=== PATIENT | male | born 1955 | race Native Hawaiian/Other Pacific Islander ===

== ENCOUNTER 2016-11-29 18:09 | Emergency (ER) | payer OTHER ==
[~2016-11-29] VITALS: Ht 175.3 cm; Wt 70.3 kg
[2016-11-29 18:59] LABS: PLATELET COUNT 317 K/uL (142-355)
[2016-11-29 19:11] LABS: POTASSIUM 3.8 mmol/L (3.6-5.2); SODIUM 136 mmol/L (136-145)
[2016-11-29 20:11] VITALS: BP 160/85; TEMP 98.5
[2017-03-24] MEDS ORDERED: ALBUTEROL0.083 % IN (09:38)
[2017-03-24] MEDS ORDERED: ALBU90AE13 INH (09:38)
== END 2016-11-29 20:16 | disposition home or self-care (01) ==
LOC: ED 18:09
DX: J44.1 Chronic obstructive pulmonary disease with (acute) exacerbation (principal); J43.9 Emphysema, unspecified
CPT/HCPCS: 36415; 80053; 85027; 99283; J2920; J2930

== ENCOUNTER 2017-03-23 17:06 | Outpatient (CLI) | payer OTHER ==
[2017-03-24] MEDS ORDERED: ALBU90AE13 INH ×2 (09:38)
[2017-03-24] MEDS ORDERED: ALBUTEROL0.083 % IN ×2 (09:38)
== END 2017-03-23 17:19 | disposition short-term general hospital (02) ==
LOC: AMB 17:06
DX: R06.09 Other forms of dyspnea (principal)
CPT/HCPCS: A0425; A0427

== ENCOUNTER 2017-03-23 17:26 | Inpatient (IN) | payer OTHER ==
[~2017-03-23] VITALS: Ht 175.3 cm; Wt 69.1 kg
[2017-03-23 17:19] VITALS: BP 167/87; TEMP 98
[2017-03-23 17:41] LABS: PLATELET COUNT 298 K/uL (142-355)
[2017-03-23 17:54] LABS: SODIUM 138 mmol/L (136-145)
[2017-03-24 01:33] VITALS: BP 157/88; TEMP 97.6; Ht 175.3 cm; Wt 69.1 kg
[2017-03-24 04:00] VITALS: BP 131/86; TEMP 97.9
[2017-03-24 08:00] VITALS: BP 133/77; TEMP 98
[2017-03-24] MEDS ORDERED: ALBU90AE13 INH ×2 (09:38)
[2017-03-24] MEDS ORDERED: ALBUTEROL0.083 % IN ×2 (09:38)
[2017-03-24 12:00] VITALS: BP 139/84; TEMP 97.9
[2017-03-24 16:00] VITALS: BP 136/86; TEMP 98.2
[2017-03-24 20:00] VITALS: BP 147/95; TEMP 97.9
[2017-03-25] VITALS: BP 139/87; TEMP 97.6
[2017-03-25 04:00] VITALS: BP 123/89; TEMP 98.1
[2017-03-25 07:19] LABS: POTASSIUM 4.3 mmol/L (3.6-5.2); SODIUM 138 mmol/L (136-145)
[2017-03-25 08:00] VITALS: BP 146/97; TEMP 97.8
[2017-03-25 10:35] LABS: PLATELET COUNT 280 K/uL (142-355)
[2017-03-25 12:22] VITALS: BP 138/91; TEMP 97.6
[2017-03-25 16:00] VITALS: BP 132/79; TEMP 97.8
[2017-03-25 20:00] VITALS: BP 145/95; TEMP 98.6
[2017-03-26] VITALS: BP 140/88; TEMP 98.3
[2017-03-26 04:00] VITALS: BP 118/78; TEMP 97.6
[2017-03-26 06:21] LABS: POTASSIUM 3.8 mmol/L (3.6-5.2); SODIUM 139 mmol/L (136-145)
[2017-03-26 06:26] LABS: PLATELET COUNT 272 K/uL (142-355)
[2017-03-26 08:00] VITALS: BP 146/79; TEMP 97.6
[2017-03-26 12:00] VITALS: BP 133/87; TEMP 97.4
[2017-03-26 16:00] VITALS: BP 149/91; TEMP 97.6
[2017-03-26 20:30] VITALS: BP 148/94; TEMP 98.1
[2017-03-27] VITALS: BP 148/94; TEMP 98.1
[2017-03-27 04:00] VITALS: BP 128/73; TEMP 97
[2017-03-27 06:24] LABS: PLATELET COUNT 275 K/uL (142-355)
[2017-03-27 06:49] LABS: POTASSIUM 3.7 mmol/L (3.6-5.2); SODIUM 140 mmol/L (136-145)
[2017-03-27 07:00] VITALS: BP 110/68; TEMP 97.3
[2017-03-27 12:00] VITALS: BP 126/75; TEMP 98.8
[2017-03-27 16:00] VITALS: BP 147/83; TEMP 97.7
[2017-03-27 20:00] VITALS: BP 148/96; TEMP 97.6
[2017-03-28] VITALS: BP 131/86; TEMP 97.4
[2017-03-28 04:00] VITALS: BP 137/87; TEMP 97.5
[2017-03-28 05:35] LABS: PLATELET COUNT 262 K/uL (142-355)
[2017-03-28 05:54] LABS: POTASSIUM 4.1 mmol/L (3.6-5.2); SODIUM 139 mmol/L (136-145)
[2017-03-28 08:00] VITALS: BP 128/88; TEMP 97.4
[2017-03-28 11:58] VITALS: BP 158/89; TEMP 97.9
[2017-03-28 16:00] VITALS: BP 140/93; TEMP 97.5
[2017-03-28 20:00] VITALS: BP 170/92; TEMP 97.9
[2017-03-29] VITALS: BP 127/79; TEMP 98
[2017-03-29 04:00] VITALS: BP 128/81; TEMP 97.5
[2017-03-29 04:24] LABS: PLATELET COUNT 278 K/uL (142-355)
[2017-03-29 04:47] LABS: POTASSIUM 3.3 mmol/L (3.6-5.2); SODIUM 137 mmol/L (136-145)
[2017-03-29 08:00] VITALS: BP 130/86; TEMP 97.6
[2017-03-29 12:00] VITALS: BP 131/88; TEMP 97.8
== END 2017-03-29 14:50 | disposition home or self-care (01) | DRG 192 ==
LOC: ED 17:26 → MED/SURG 22:30
PROVIDERS: Emergency Medicine; Internal Medicine; ADMIT Emergency Medicine
DX: J44.1 Chronic obstructive pulmonary disease with (acute) exacerbation (principal); Z72.0 Tobacco use
CPT/HCPCS: 36415; 36591; 80048; 80053; 82550; 83735; 83880; 84484; 85027; 93005; 94640; 94664; 94760; 96367; 96374; 96375; 99284; J1650; J1956; J2930; J3475; Q9963

== ENCOUNTER 2017-11-12 17:33 | Emergency (ER) | payer OTHER ==
[~2017-11-12] VITALS: Ht 175.3 cm; Wt 72.1 kg
[~2017-11-12 17:33] MED LIST: ALBU90AE13 INH; ALBUTEROL0.083 % IN
[2017-11-12 17:40] VITALS: BP 167/108; TEMP 98.6
[2017-11-12 19:07] LABS: POTASSIUM 3.9 mmol/L (3.6-5.2)
[2017-11-12 19:09] LABS: PLATELET COUNT 312 K/uL (142-355)
== END 2017-11-12 19:36 | disposition home or self-care (01) ==
LOC: ED 17:33
DX: J44.1 Chronic obstructive pulmonary disease with (acute) exacerbation (principal); J45.909 Unspecified asthma, uncomplicated; R06.00 Dyspnea, unspecified
CPT/HCPCS: 80053; 85027; 94664; 96365; 99284; J2930

== ENCOUNTER 2017-11-15 16:59 | Emergency (ER) | payer OTHER ==
[~2017-11-15] VITALS: Ht 175.3 cm; Wt 71.7 kg
[2017-11-15 17:33] LABS: PLATELET COUNT 314 K/uL (142-355)
[2017-11-15 17:36] LABS: POTASSIUM 3.4 mmol/L (3.6-5.2); SODIUM 135 mmol/L (136-145)
[2017-11-15 17:51] LABS: PARTIAL THROMBOPLASTIN TIME 24.2 SECONDS (24.5-33.6)
[2017-11-15 19:25] VITALS: BP 138/95; TEMP 98.2
== END 2017-11-15 19:31 | disposition home or self-care (01) ==
LOC: ED 16:59
DX: R06.00 Dyspnea, unspecified (principal); F11.10 Opioid abuse, uncomplicated
CPT/HCPCS: 36415; 80053; 80307; 81000; 82550; 84484; 85027; 85610; 85730; 93005; 94664; 99284

== ENCOUNTER 2017-11-17 07:37 | Outpatient (CLI) | payer OTHER | END 2017-11-17 07:47 | disposition short-term general hospital (02) | LOC: AMB 07:37 | DX: R06.09 Other forms of dyspnea (principal) | CPT/HCPCS: A0425; A0427 ==

== ENCOUNTER 2017-11-17 07:47 | Inpatient (IN) | payer OTHER ==
[2017-11-17] VITALS (7 sets, daily range): BP systolic 132–158; BP diastolic 58–96; TEMP 97.7–98.1; Ht 175.3 cm; Wt 71.3 kg
[~2017-11-17] VITALS: Ht 175.3 cm; Wt 71.3 kg
[2017-11-17 08:25] LABS: POTASSIUM 4.2 mmol/L (3.6-5.2); SODIUM 137 mmol/L (136-145)
[2017-11-17 08:32] LABS: PLATELET COUNT 321 K/uL (142-355)
[2017-11-18] VITALS: BP 118/76; TEMP 97.8
[2017-11-18 04:00] VITALS: BP 112/74; TEMP 97.3
[2017-11-18 06:00] LABS: POTASSIUM 4.1 mmol/L (3.6-5.2)
[2017-11-18 06:06] LABS: PLATELET COUNT 290 K/uL (142-355)
[2017-11-18 08:15] VITALS: BP 114/71; TEMP 97.4
[2017-11-18 12:00] VITALS: BP 139/79; TEMP 98.1
[2017-11-18 16:00] VITALS: BP 137/80; TEMP 98.1
[2017-11-18 20:00] VITALS: BP 129/85; TEMP 98.2
[2017-11-19] VITALS: BP 126/76; BP 147/69; TEMP 98.1
[2017-11-19 04:00] VITALS: BP 123/80; TEMP 98.1
[2017-11-19 05:13] LABS: PLATELET COUNT 309 K/uL (142-355)
[2017-11-19 05:36] LABS: POTASSIUM 4.2 mmol/L (3.6-5.2)
[2017-11-19 08:13] VITALS: BP 142/84; TEMP 97.8
[2017-11-19 12:00] VITALS: BP 134/79; TEMP 98
[2017-11-19 16:00] VITALS: BP 148/78; TEMP 98.1
[2017-11-19 20:00] VITALS: BP 129/84; TEMP 98.4
[2017-11-20] VITALS: BP 100/72; TEMP 98.4
[2017-11-20 04:00] VITALS: BP 102/81; TEMP 98.1
[2017-11-20 05:53] LABS: POTASSIUM 3.1 mmol/L (3.6-5.2)
[2017-11-20 06:01] LABS: PLATELET COUNT 313 K/uL (142-355)
[2017-11-20 08:00] VITALS: BP 102/67; TEMP 97.9
[2017-11-20 12:00] VITALS: BP 103/67; TEMP 98
[2017-11-20 16:00] VITALS: BP 103/67; BP 103/73; TEMP 98; TEMP 98.2
[2017-11-20 20:00] VITALS: BP 118/78; TEMP 98.3
[2017-11-21] VITALS: BP 122/90; TEMP 97.4
[2017-11-21 04:00] VITALS: BP 106/80; TEMP 98.2
[2017-11-21 06:36] LABS: PLATELET COUNT 303 K/uL (142-355)
[2017-11-21 07:43] LABS: POTASSIUM 4.5 mmol/L (3.6-5.2)
[2017-11-21 08:00] VITALS: BP 100/70; TEMP 98
[2017-11-21 12:00] VITALS: BP 116/81; TEMP 98.2
[2017-11-21 16:00] VITALS: BP 117/58; TEMP 98.1
[2017-11-21 20:25] VITALS: BP 113/73; TEMP 98.4
[2017-11-22] VITALS: BP 105/65; TEMP 98.2
[2017-11-22 04:00] VITALS: BP 108/58; TEMP 98.4
[2017-11-22 06:01] LABS: PLATELET COUNT 307 K/uL (142-355)
[2017-11-22 06:02] LABS: POTASSIUM 4.1 mmol/L (3.6-5.2)
[2017-11-22 08:00] VITALS: BP 117/73; TEMP 97.9
[2017-11-22 11:51] VITALS: BP 106/73; TEMP 97.9
[2017-11-22 16:00] VITALS: BP 102/73; TEMP 98.4
[2017-11-22 20:00] VITALS: BP 113/74; TEMP 98.1
[2017-11-23] VITALS (7 sets, daily range): BP systolic 101–126; BP diastolic 54–89; TEMP 97.7–98.1
[2017-11-23 06:23] LABS: PLATELET COUNT 296 K/uL (142-355)
[2017-11-23 06:43] LABS: POTASSIUM 3.8 mmol/L (3.6-5.2)
[2017-11-24 04:00] VITALS: BP 113/87; TEMP 97.7
[2017-11-24 05:19] LABS: PLATELET COUNT 257 K/uL (142-355)
[2017-11-24 07:59] VITALS: BP 115/74; TEMP 98.1
[2017-11-24] MEDS ORDERED: PROAIR HFA IN (09:35)
[2017-11-24] MEDS ORDERED: MEDROL4 MG OR (09:35)
[2017-11-24] MEDS ORDERED: PULMICORT180 MCG IN (09:35)
[2017-11-24 11:48] VITALS: BP 126/88; TEMP 97.9
[2017-11-24 16:00] VITALS: BP 115/89; TEMP 98.1
== END 2017-11-24 17:50 | disposition home or self-care (01) | DRG 192 ==
LOC: ED 07:47 → MED/SURG 11:50
PROVIDERS: Emergency Medicine; ADMIT Family Medicine
DX: J44.1 Chronic obstructive pulmonary disease with (acute) exacerbation (principal); J43.9 Emphysema, unspecified; E87.6 Hypokalemia; R06.09 Other forms of dyspnea; F14.10 Cocaine abuse, uncomplicated; D72.828 Other elevated white blood cell count
CPT/HCPCS: 36415; 36600; 80053; 81000; 82550; 82805; 82948; 83880; 84484; 85027; 85379; 87070; 87081; 87205; 87804; 87880; 93005; 93306; 94640; 94664; 94668; 94760; 96365; 96367; 96372; 96374; 96375; 99284; J1650; J1815; J1956; J2920; J2930; J3475; Q9963

== ENCOUNTER 2018-02-26 04:01 | Emergency (ER) | payer OTHER ==
[~2018-02-26] VITALS: Ht 175.3 cm; Wt 67.6 kg
[~2018-02-26 04:01] MED LIST changes: +MEDROL4 MG OR; +PROAIR HFA IN; +PULMICORT180 MCG IN
[2018-02-26 04:21] LABS: PLATELET COUNT 283 K/uL (142-355)
[2018-02-26 04:32] LABS: POTASSIUM 4.1 mmol/L (3.6-5.2)
[2018-02-26 05:56] VITALS: BP 147/88; TEMP 98.4
== END 2018-02-26 05:59 | disposition home or self-care (01) ==
LOC: ED 04:01
PROC: 0T9B70Z Drainage of Bladder with Drainage Device, Via Natural or Artificial Opening (ICD-10-PCS; principal; 2018-02-26)
DX: R33.9 Retention of urine, unspecified (principal)
CPT/HCPCS: 51702; 80053; 81000; 85027; 93005; 94664; 99283

== ENCOUNTER 2018-08-02 08:46 | Outpatient (CLI) | payer OTHER ==
[2018-08-02 09:05] LABS: PLATELET COUNT 258 K/uL (142-355)
[2018-08-02 10:08] LABS: POTASSIUM 3.9 mmol/L (3.6-5.2)
== END 2018-08-02 18:50 | disposition home or self-care (01) ==
LOC: LABW 08:46
PROVIDERS: Physician Assistant
DX: I10 Essential (primary) hypertension (principal); N40.0 Benign prostatic hyperplasia without lower urinary tract symptoms; Z79.899 Other long term (current) drug therapy
CPT/HCPCS: 36415; 80053; 80061; 83036; 84153; 84439; 84443; 85027

== ENCOUNTER 2018-08-15 08:39 | Day surgery (SDC) | payer OTHER ==
[2018-08-15 09:21] LABS: PLATELET COUNT 299 K/uL (142-355)
[2018-08-15 10:04] LABS: POTASSIUM 3.8 mmol/L (3.6-5.2)
== END 2018-08-15 15:40 | disposition home or self-care (01) ==
LOC: OR 08:39
PROVIDERS: Student in an Organized Health Care Education/Training Program
PROC: 0JBL0ZZ Excision of Right Upper Leg Subcutaneous Tissue and Fascia, Open Approach (ICD-10-PCS; principal; 2018-08-15)
DX: D17.23 Benign lipomatous neoplasm of skin and subcutaneous tissue of right leg (principal); L90.5 Scar conditions and fibrosis of skin; M79.89 Other specified soft tissue disorders
CPT/HCPCS: 80053; 85027; J0132; J0330; J0690; J1100; J1170; J2001; J2250; J2405; J2704; J3010; J3490

== ENCOUNTER 2019-10-24 00:14 | Outpatient (CLI) | payer OTHER | END 2019-10-24 00:25 | disposition short-term general hospital (02) | LOC: AMB 00:14 | DX: N48.89 Other specified disorders of penis (principal) | CPT/HCPCS: A0425; A0427 ==

== ENCOUNTER 2019-10-24 00:28 | Emergency (ER) | payer OTHER ==
[~2019-10-24] VITALS: Ht 175.3 cm; Wt 70.8 kg
[2019-10-24 01:18] LABS: PLATELET COUNT 286 K/uL (142-355)
[2019-10-24 01:27] LABS: PARTIAL THROMBOPLASTIN TIME 22.7 SECONDS (24.5-33.6)
[2019-10-24 01:29] LABS: POTASSIUM 3.6 mmol/L (3.6-5.2)
[2019-10-24 03:35] VITALS: BP 131/95; TEMP 97.9
== END 2019-10-24 03:35 | disposition short-term general hospital (02) ==
LOC: ED 00:28
PROVIDERS: Emergency Medicine
PROC: 0T9B70Z Drainage of Bladder with Drainage Device, Via Natural or Artificial Opening (ICD-10-PCS; principal; 2019-10-24)
DX: R31.0 Gross hematuria (principal)
CPT/HCPCS: 51702; 80053; 81000; 85027; 85610; 85730; 86850; 86900; 86901; 96360; 96361; 99284

== ENCOUNTER 2019-10-24 03:44 | Outpatient (CLI) | payer OTHER | END 2019-10-24 05:39 | disposition short-term general hospital (02) | LOC: AMB 03:44 | DX: R31.0 Gross hematuria (principal) | CPT/HCPCS: A0425; A0429 ==

== ENCOUNTER 2019-11-14 03:21 | Outpatient (CLI) | payer OTHER | END 2019-11-14 03:33 | disposition short-term general hospital (02) | LOC: AMB 03:21 | DX: R33.8 Other retention of urine (principal); R10.30 Lower abdominal pain, unspecified | CPT/HCPCS: A0425; A0429 ==

== ENCOUNTER 2019-11-14 03:36 | Emergency (ER) | payer OTHER ==
[~2019-11-14] VITALS: Ht 175.3 cm; Wt 71.2 kg
[2019-11-14 04:39] VITALS: BP 150/83; TEMP 97.8
== END 2019-11-14 04:40 | disposition home or self-care (01) ==
LOC: ED 03:36
PROC: 0T2BX0Z Change Drainage Device in Bladder, External Approach (ICD-10-PCS; principal; 2019-11-14)
DX: R33.8 Other retention of urine (principal)
CPT/HCPCS: 51702; 81000; 99282; 99283

== ENCOUNTER 2020-07-10 17:50 | Outpatient (CLI) | payer OTHER ==
[2020-07-10 20:32] LABS: POTASSIUM 4.3 mmol/L (3.6-5.2)
== END 2020-07-10 23:43 | disposition home or self-care (01) ==
LOC: LAB 17:50
PROVIDERS: Internal Medicine
DX: I10 Essential (primary) hypertension (principal); N40.1 Benign prostatic hyperplasia with lower urinary tract symptoms
CPT/HCPCS: 80053; 80061; 81000; 84153; 84439; 84443; 85027; 87077; 87086; 87088; 87186

== ENCOUNTER 2020-10-09 09:20 | Outpatient (CLI) | payer OTHER ==
[2020-10-09 09:48] LABS: POTASSIUM 4.3 mmol/L (3.6-5.2)
[2020-10-09 09:58] LABS: PLATELET COUNT 250 K/uL (142-355)
== END 2020-10-09 19:22 | disposition home or self-care (01) ==
LOC: LABW 09:20
PROVIDERS: ATTEND Internal Medicine
DX: B86 Scabies (principal)
CPT/HCPCS: 36415; 80053; 85027

== ENCOUNTER 2021-01-07 16:10 | Emergency (ER) | payer OTHER ==
[~2021-01-07] VITALS: Ht 175.3 cm; Wt 71.2 kg
[2021-01-07 16:15] VITALS: TEMP 98
[2021-01-07] MEDS ORDERED: MOBIC15 MG PO (16:31)
[2021-01-07] MEDS ORDERED: PRAVASTATIN10 MG PO (16:31)
[2021-01-07] MEDS ORDERED: LOSA50TA PO (16:32)
[2021-01-07] MEDS ORDERED: TAMS0.4C PO (16:33)
[2021-01-07 16:36] LABS: PLATELET COUNT 268 K/uL (142-355)
[2021-01-07 16:41] LABS: POTASSIUM 3.9 mmol/L (3.6-5.2)
[2021-01-07 18:47] VITALS: BP 156/90
== END 2021-01-07 18:49 | disposition home or self-care (01) ==
LOC: ED 16:10
PROVIDERS: Emergency Medicine Emergency Medical Services
DX: J44.1 Chronic obstructive pulmonary disease with (acute) exacerbation (principal); Z20.828 Contact with and (suspected) exposure to other viral communicable diseases; F17.210 Nicotine dependence, cigarettes, uncomplicated
CPT/HCPCS: 80053; 85027; 87635; 94664; 96374; 99284; J1100; U0003

== ENCOUNTER 2021-04-08 08:54 | Outpatient (CLI) | payer OTHER ==
[2021-04-08 09:17] LABS: PLATELET COUNT 265 K/uL (142-355)
[2021-04-08 09:48] LABS: POTASSIUM 3.8 mmol/L (3.6-5.2)
== END 2021-04-08 22:18 | disposition home or self-care (01) ==
LOC: LABW 08:54
PROVIDERS: ATTEND Internal Medicine
DX: I10 Essential (primary) hypertension (principal)
CPT/HCPCS: 36415; 80053; 80061; 81000; 84439; 84443; 85027

== ENCOUNTER 2021-06-24 04:00 | Emergency (ER) | payer OTHER ==
[~2021-06-24] VITALS: Ht 175.3 cm; Wt 74.8 kg
[~2021-06-24 04:00] MED LIST changes: +LOSA50TA PO; +MOBIC15 MG PO; +PRAVASTATIN10 MG PO; +TAMS0.4C PO
[2021-06-24 05:02] LABS: PLATELET COUNT 253 K/uL (142-355)
[2021-06-24 05:09] LABS: POTASSIUM 3.2 mmol/L (3.6-5.2)
[2021-06-24 06:00] VITALS: BP 158/89; TEMP 97.9
== END 2021-06-24 06:00 | disposition home or self-care (01) ==
LOC: ED 04:00
PROVIDERS: Emergency Medicine Emergency Medical Services
DX: N47.2 Paraphimosis (principal)
CPT/HCPCS: 36415; 80053; 85027; 96360; 96375; 99284; J2270

== ENCOUNTER 2021-11-18 18:06 | Emergency (ER) | payer OTHER ==
[~2021-11-18] VITALS: Ht 175.3 cm; Wt 74.8 kg
[2021-11-18 18:44] LABS: PLATELET COUNT 199 K/uL (142-355)
[2021-11-18 18:50] LABS: POTASSIUM 3.5 mmol/L (3.6-5.2)
[2021-11-18 20:00] VITALS: BP 156/95; TEMP 98.6
== END 2021-11-18 20:00 | disposition home or self-care (01) ==
LOC: ED 18:06
PROVIDERS: Hospitalist
DX: J06.9 Acute upper respiratory infection, unspecified (principal); U07.1 COVID-19; J45.901 Unspecified asthma with (acute) exacerbation; F17.210 Nicotine dependence, cigarettes, uncomplicated
CPT/HCPCS: 36415; 80053; 85027; 87502; 87651; 96372; 99283; J0696; J1100

== ENCOUNTER 2022-03-09 08:53 | Outpatient (CLI) | payer OTHER ==
[2022-03-09 09:12] LABS: PLATELET COUNT 271 K/uL (142-355)
[2022-03-09 09:44] LABS: POTASSIUM 3.6 mmol/L (3.6-5.2)
== END 2022-03-09 19:00 | disposition home or self-care (01) ==
LOC: LABW 08:53
PROVIDERS: ATTEND Internal Medicine
DX: I10 Essential (primary) hypertension (principal); E78.00 Pure hypercholesterolemia, unspecified; R97.20 Elevated prostate specific antigen [PSA]
CPT/HCPCS: 36415; 80053; 80061; 81000; 84153; 84443; 85027

== ENCOUNTER 2022-06-24 10:09 | Outpatient (CLI) | payer OTHER | END 2022-06-24 19:32 | disposition home or self-care (01) | LOC: RAD 10:09 | PROVIDERS: ATTEND Internal Medicine | DX: M17.11 Unilateral primary osteoarthritis, right knee (principal); M54.41 Lumbago with sciatica, right side ==

== ENCOUNTER 2022-10-27 08:27 | Outpatient (CLI) | payer OTHER ==
[2022-10-27 08:59] LABS: PLATELET COUNT 269 K/uL (142-355)
[2022-10-27 09:26] LABS: POTASSIUM 3.9 mmol/L (3.6-5.2)
== END 2022-10-27 18:59 | disposition home or self-care (01) ==
LOC: LABW 08:27
PROVIDERS: ATTEND Internal Medicine
DX: I10 Essential (primary) hypertension (principal); R97.20 Elevated prostate specific antigen [PSA]
CPT/HCPCS: 36415; 80053; 80061; 84153; 85027

== ENCOUNTER 2023-08-04 09:42 | Outpatient (CLI) | payer OTHER ==
[2023-08-04 10:06] LABS: PLATELET COUNT 323 K/uL (142-355)
[2023-08-04 10:24] LABS: POTASSIUM 3.6 mmol/L (3.6-5.2)
== END 2023-08-04 19:53 | disposition home or self-care (01) ==
LOC: LABW 09:42
PROVIDERS: ATTEND Internal Medicine
DX: I10 Essential (primary) hypertension (principal)
CPT/HCPCS: 36415; 80053; 80061; 81002; 84439; 84443; 85027